=== PATIENT | female | born 1930 | race African-American/Black ===

== ENCOUNTER → 2017-10-15 10:46 | Outpatient (CLI) | payer MEDICARE, OTHER | END | disposition home or self-care (01) | LOC: D.US 10:46 | DX: C64.9 Malignant neoplasm of unspecified kidney, except renal pelvis (principal); Z98.890 Other specified postprocedural states ==

== ENCOUNTER → 2017-11-14 07:26 | Outpatient (CLI) | payer MEDICARE, OTHER | END | disposition home or self-care (01) | LOC: D.MRI 07:26 | DX: C64.9 Malignant neoplasm of unspecified kidney, except renal pelvis (principal) ==